=== PATIENT | male | born 1965 | race African-American/Black ===

== ENCOUNTER 2017-10-09 17:56 | Emergency (ER) | payer SELFPAY ==
[~2017-10-09] VITALS: Ht 175.3 cm; Wt 73.0 kg
[2017-10-10] MEDS ORDERED: KETOROLAC 60MG/2ML VIAL IM ONE (06:45)
[2017-10-10] MEDS ORDERED: HYDROCODONE/ACETAMINOPHEN 5/325MG TABLET PO ONE (08:45)
[2017-10-10 09:13] VITALS: BP 107/56
== END 2017-10-10 09:36 | disposition home or self-care (01) ==
LOC: ER 21:41
DX: M25.522 Pain in left elbow (principal); M79.632 Pain in left forearm; R51 Headache; R07.81 Pleurodynia; F17.200 Nicotine dependence, unspecified, uncomplicated; F12.10 Cannabis abuse, uncomplicated; F14.10 Cocaine abuse, uncomplicated; F16.10 Hallucinogen abuse, uncomplicated
CPT/HCPCS: 70450; 71111; 72125; 73080; 73090; 96372; 99285; J1885; Z7610

== ENCOUNTER 2021-08-05 18:38 | Emergency (ER) | payer MEDICAID ==
[~2021-08-05] VITALS: Ht 175.3 cm; Wt 73.0 kg
[2021-08-05] MEDS ORDERED: HYDROCODONE/ACETAMINOPHEN 5/325MG TABLET PO ONE (22:30)
[2021-08-06 00:49] VITALS: BP 145/77
== END 2021-08-06 01:24 | disposition home or self-care (01) ==
LOC: ER 18:38
DX: R51.9 Headache, unspecified (principal); M79.645 Pain in left finger(s); M25.552 Pain in left hip; W18.39XA Other fall on same level, initial encounter; Y93.89 Activity, other specified; Y92.89 Other specified places as the place of occurrence of the external cause; Y99.8 Other external cause status; F14.10 Cocaine abuse, uncomplicated; F12.10 Cannabis abuse, uncomplicated
CPT/HCPCS: 29130; 73130; 73502; 99284

== ENCOUNTER 2022-12-23 03:44 | Emergency (ER) | payer MEDICAID ==
[~2022-12-23] VITALS: Ht 175.3 cm; Wt 66.0 kg
[2022-12-23 03:59] VITALS: O2SAT 99
[2022-12-23] MEDS ORDERED: SODIUM CHLORIDE 0.9% 1,000 ML IV ONE (04:15)
[2022-12-23 05:01] LABS: BASOPHILS % 0.4 % (0.0-2.0); EOSINOPHILS % 2.1 % (0.0-5.0); HEMATOCRIT. 35.6 % (42.0-52.0); HEMOGLOBIN. 12.2 g/dL (14.0-18.0); MEAN CORPUSCULAR HEMOGLOBIN 30.9 pg (28.0-32.0); MEAN CORPUSCULAR HGB CONC 34.4 g/dL (31.0-37.0); MEAN CORPUSCULAR VOLUME 89.8 fL (80.0-94.0); MEAN PLATELET VOLUME 8.8 fl (7.4-10.4); MONOCYTES % 7.1 % (2.0-8.0); NEUTROPHILS % 76.4 % (40.0-76.0); PLATELET 265 x1000/uL (130-400); RED BLOOD CELL COUNT 3.96 mill/uL (4.7-6.1); RED CELL DISTRIBUTION WIDTH 12.9 % (11.6-14.6)
[2022-12-23 05:08] LABS: CHLORIDE 109 mEq/L (98-107); INDEX HEMOLYSI 1 (1-3); INDEX ICTERIC 1 (1-4); INDEX LIPEMIC 1 (1-3); POTASSIUM 3.2 mEq/L (3.5-5.1); SODIUM 141 mEq/L (136-145)
[2022-12-23 05:18] LABS: ALANINE AMINOTRANSFERASE 28 IU/L (13-61); ALBUMIN 3.3 g/dL (3.4-5.0); ASPARTATE AMINOTRANSFERASE 17 IU/L (15-37); BILIRUBIN TOTAL 0.3 mg/dL (0.1-1.0); CALCIUM 7.9 mg/dL (8.5-10.1); CARBON DIOXIDE 25 mEq/L (21-32); CREATINE KINASE 270 IU/L (39-308); CREATININE 0.8 mg/dL (0.6-1.3); GLUCOSE 100 mg/dL (70-105); PROTEIN TOTAL 6.6 g/dL (6.0-8.3); UREA NITROGEN BLOOD 14 mg/dL (7-21)
[2022-12-23 05:34] LABS: CLARITY URINE CLEAR (CLEAR); COLOR URINE YELLOW (YELLOW); GLUCOSE URINE NEGATIVE (NEGATIVE); KETONES URINE NEGATIVE (NEGATIVE); LEUKOCYTE ESTERASE URINE NEGATIVE (NEGATIVE); NITRITE URINE NEGATIVE (NEGATIVE); OCCULT BLOOD URINE NEGATIVE (NEGATIVE); PH URINE 5.5 (4.5-8.0); PROTEIN URINE NEGATIVE (NEGATIVE); SPECIFIC GRAVITY URINE 1.007 (1.005-1.030); UROBILINOGEN URINE 0.2 E.U./dL (0.2-1.0)
[2022-12-23 05:53] LABS: BASOPHILS % 0.4 % (0.0-2.0); EOSINOPHILS % 1.7 % (0.0-5.0); HEMATOCRIT. 35.3 % (42.0-52.0); HEMOGLOBIN. 11.8 g/dL (14.0-18.0); LYMPHOCYTES % 12.9 % (20.0-50.0); MEAN CORPUSCULAR HEMOGLOBIN 29.9 pg (28.0-32.0); MEAN CORPUSCULAR HGB CONC 33.5 g/dL (31.0-37.0); MEAN CORPUSCULAR VOLUME 89.4 fL (80.0-94.0); MEAN PLATELET VOLUME 8.4 fl (7.4-10.4); MONOCYTES % 6.7 % (2.0-8.0); NEUTROPHILS % 78.3 % (40.0-76.0); PLATELET 248 x1000/uL (130-400); RED BLOOD CELL COUNT 3.95 mill/uL (4.7-6.1); RED CELL DISTRIBUTION WIDTH 13.3 % (11.6-14.6); WHITE BLOOD COUNT 12.8 x1000/uL (4.5-11.0)
[2022-12-23 05:58] LABS: PARTIAL THROMBOPLASTIN TIME 28.1 sec (23.4-31.0); PROTHROMBIN TIME 11.2 sec (9.6-11.0)
[2022-12-23] MEDS ORDERED: ACETAMINOPHEN 325MG TABLET PO ONE (06:30)
[2022-12-23] MEDS ORDERED: POTASSIUM CHLORIDE 20MEQ TABLET SR PO ONE (08:00)
[2022-12-23] MEDS ORDERED: NAPR-1164 MT (08:54)
[2022-12-23 09:29] VITALS: BP 154/91; PULSE 78; RESP 16; TEMP 98.8
== END 2022-12-23 09:45 | disposition home or self-care (01) ==
LOC: ER 05:03
DX: M79.602 Pain in left arm (principal); R51.9 Headache, unspecified; V29.99XA Rider (driver) (passenger) of other motorcycle injured in unspecified traffic accident, initial encounter; Y93.89 Activity, other specified; Y92.89 Other specified places as the place of occurrence of the external cause; Y99.8 Other external cause status
CPT/HCPCS: 80053; 81003; 82550; 83690; 85025; 85610; 85730; 86850; 86900; 86901; 36415; 71045; 72170; 73562; 70450; 96360; 99285; J7030; Z7610 ×2

== ENCOUNTER 2023-04-18 00:53 | Emergency (ER) | payer SELFPAY ==
[~2023-04-18] VITALS: Ht 172.7 cm; Wt 73.0 kg
[~2023-04-18 00:53] MED LIST: NAPR-1164 MT
[2023-04-18 01:16] VITALS: O2SAT 98
[2023-04-18] MEDS ORDERED: IBUP-2028 MT (05:34)
[2023-04-18] MEDS ORDERED: IBUPROFEN 400MG TABLET PO ONE (05:45)
[2023-04-18 05:54] VITALS: BP 121/69; PULSE 98; RESP 18; TEMP 98.7
== END 2023-04-18 06:10 | disposition home or self-care (01) ==
LOC: ER 00:53
DX: R56.9 Unspecified convulsions (principal); Y08.89XA Assault by other specified means, initial encounter; Y93.89 Activity, other specified; Y92.89 Other specified places as the place of occurrence of the external cause; Y99.8 Other external cause status
CPT/HCPCS: 99282

== ENCOUNTER 2023-07-09 01:55 | Emergency (ER) | payer SELFPAY ==
[~2023-07-09] VITALS: Ht 172.7 cm; Wt 73.0 kg
[~2023-07-09 01:55] MED LIST changes: +IBUP-2028 MT
[2023-07-09 02:21] VITALS: BP 112/78; PULSE 98; RESP 15; TEMP 98.2; O2SAT 98
== END 2023-07-09 05:29 | disposition home or self-care (01) ==
LOC: ER 01:55
DX: S09.90XA Unspecified injury of head, initial encounter (principal); F14.10 Cocaine abuse, uncomplicated; F12.10 Cannabis abuse, uncomplicated; Y08.89XA Assault by other specified means, initial encounter; Y93.89 Activity, other specified; Y92.89 Other specified places as the place of occurrence of the external cause; Y99.8 Other external cause status
CPT/HCPCS: 99281

== ENCOUNTER 2023-08-13 07:02 | Inpatient (IN) | payer SELFPAY ==
[~2023-08-13] VITALS: Ht 175.3 cm; Wt 74.4 kg
[~2023-08-13 07:02] MED LIST changes: +IBUP-2029 MT
[2023-08-13 07:40] LABS: BASOPHILS % 0.6 % (0.0-2.0); EOSINOPHILS % 1.4 % (0.0-5.0); HEMATOCRIT. 40.6 % (42.0-52.0); MEAN CORPUSCULAR HEMOGLOBIN 30.6 pg (28.0-32.0); MEAN CORPUSCULAR HGB CONC 34.4 g/dL (31.0-37.0); MEAN CORPUSCULAR VOLUME 89.2 fL (80.0-94.0); MEAN PLATELET VOLUME 8.8 fl (7.4-10.4); MONOCYTES % 6.4 % (2.0-8.0); NEUTROPHILS % 73.6 % (40.0-76.0); PLATELET 266 x1000/uL (130-400); RED BLOOD CELL COUNT 4.56 mill/uL (4.7-6.1); RED CELL DISTRIBUTION WIDTH 14.1 % (11.6-14.6); WHITE BLOOD COUNT 12.9 x1000/uL (4.5-11.0)
[2023-08-13 07:47] LABS: CHLORIDE 107 mEq/L (98-107); POTASSIUM 3.4 mEq/L (3.5-5.1); SODIUM 139 mEq/L (136-145)
[2023-08-13 07:48] LABS: CALCIUM 8.9 mg/dL (8.7-10.4); CARBON DIOXIDE 24 mEq/L (21-32)
[2023-08-13 07:53] LABS: CREATININE 1.2 mg/dL (0.6-1.3); GLUCOSE 175 mg/dL (70-105); UREA NITROGEN BLOOD 16 mg/dL (9-23)
[2023-08-13 08:09] LABS: ETHANOL BLOOD < 10 mg/dL (<10)
[2023-08-13] MEDS: ACETAMINOPHEN 325MG TABLET PO ONE (09:01)
[2023-08-13] MEDS: OXYCODONE HCL/ACETAMINOPHEN 5/325MG TABLET PO ONE (10:00)
[2023-08-13] MEDS: LIDOCAINE HCL/EPINEPHRINE 1%-EPI 1:100,000 20 ML VIAL INFIL ONE (12:13)
[2023-08-13] MEDS ORDERED: IPRATROPIUM/ALBUTEROL 0.5-3(2.5)MG/3ML NEB HHN PRN (13:45)
[2023-08-13] MEDS ORDERED: MAGNESIUM/ALUMINUM HYDROXIDE/SIMETHICONE 30ML UDC PO PRN (13:45)
[2023-08-13] MEDS ORDERED: ACETAMINOPHEN 325MG TABLET PO PRN (13:45)
[2023-08-13] MEDS ORDERED: ONDANSETRON HCL 4MG/2ML INJ IV PRN (13:45)
[2023-08-13] MEDS ORDERED: CLONIDINE 0.1MG TABLET PO PRN (13:45)
[2023-08-13] MEDS: ENOXAPARIN 40MG/0.4ML SYR SUBCUT SCH (17:06)
[2023-08-13 18:28] LABS: CREATINE KINASE 1371 IU/L (46-171)
[2023-08-13 19:46] VITALS: BP 148/85; PULSE 103; RESP 20; TEMP 98.8
[2023-08-13 20:00] VITALS: BP 151/83; PULSE 105; RESP 19; TEMP 97.5
[2023-08-13] MEDS: FAMOTIDINE 20MG TABLET PO SCH (22:09)
[2023-08-13] MEDS: ACETAMINOPHEN 325MG TABLET PO PRN (22:10)
[2023-08-14] VITALS: BP 133/88; PULSE 98; RESP 18; TEMP 97.5
[2023-08-14 04:00] VITALS: BP 153/91; PULSE 97; RESP 19; TEMP 97.7
[2023-08-14] MEDS: KETOROLAC 15MG/ML VIAL IV PRN (06:47)
[2023-08-14 08:00] VITALS: BP 136/90; PULSE 106; RESP 20; TEMP 97.4
[2023-08-14 12:00] VITALS: BP 145/79; PULSE 92; RESP 20; TEMP 97.9
[2023-08-14] MEDS: SODIUM CHLORIDE 0.9% 1,000 ML IV SCH (14:28)
[2023-08-14 16:00] VITALS: BP 128/75; PULSE 95; RESP 20; TEMP 98
[2023-08-14 16:16] LABS: BASOPHILS % 0.4 % (0.0-2.0); EOSINOPHILS % 2.8 % (0.0-5.0); HEMATOCRIT. 34.7 % (42.0-52.0); HEMOGLOBIN. 11.8 g/dL (14.0-18.0); LYMPHOCYTES % 17.4 % (20.0-50.0); MEAN CORPUSCULAR HEMOGLOBIN 30.9 pg (28.0-32.0); MEAN CORPUSCULAR VOLUME 90.8 fL (80.0-94.0); MEAN PLATELET VOLUME 8.5 fl (7.4-10.4); MONOCYTES % 6.9 % (2.0-8.0); NEUTROPHILS % 72.5 % (40.0-76.0); PLATELET 233 x1000/uL (130-400); RED BLOOD CELL COUNT 3.82 mill/uL (4.7-6.1); RED CELL DISTRIBUTION WIDTH 13.5 % (11.6-14.6); WHITE BLOOD COUNT 8.3 x1000/uL (4.5-11.0)
[2023-08-14 16:22] LABS: CARBON DIOXIDE 29 mEq/L (21-32); CHLORIDE 105 mEq/L (98-107); POTASSIUM 4.3 mEq/L (3.5-5.1); SODIUM 138 mEq/L (136-145)
[2023-08-14 16:23] LABS: CALCIUM 8.7 mg/dL (8.7-10.4)
[2023-08-14 16:28] LABS: GLUCOSE 126 mg/dL (70-105); LDL CHOLESTEROL 69 mg/dL (5-100); TRIGLYCERIDE 175 mg/dL (0-150); UREA NITROGEN BLOOD 11 mg/dL (9-23)
[2023-08-14 16:30] LABS: CHOLESTEROL 136 mg/dL (<200); HDL CHOLESTEROL 47 mg/dL (>55)
[2023-08-14 16:31] LABS: THYROID STIMULATING HORMONE 1.09 uIU/mL (0.55-4.78)
[2023-08-14 16:32] LABS: T4 FREE 1.01 ng/dL (0.89-1.76)
[2023-08-14 20:00] VITALS: BP 121/78; PULSE 105; RESP 19; TEMP 98.6
[2023-08-15] VITALS: BP 125/79; PULSE 91; RESP 19; TEMP 99.5
[2023-08-15 04:00] VITALS: BP 126/88; PULSE 103; RESP 19; TEMP 98.8
[2023-08-15 08:00] VITALS: BP 147/88; PULSE 90; RESP 20; TEMP 98.6
[2023-08-15 12:00] VITALS: BP 118/70; PULSE 85; RESP 19; TEMP 97.7
[2023-08-15 16:00] VITALS: BP 116/68; PULSE 97; RESP 20; TEMP 98.1
[2023-08-15 20:00] VITALS: BP 140/8; PULSE 98; RESP 19; TEMP 98.1
[2023-08-16] VITALS: BP 138/82; PULSE 92; RESP 19; TEMP 97.8
[2023-08-16 04:00] VITALS: BP 136/86; PULSE 91; RESP 19; TEMP 98.2
[2023-08-16 06:31] LABS: CARBON DIOXIDE 28 mEq/L (21-32); CHLORIDE 108 mEq/L (98-107); POTASSIUM 3.9 mEq/L (3.5-5.1); SODIUM 141 mEq/L (136-145)
[2023-08-16 06:32] LABS: CALCIUM 8.8 mg/dL (8.7-10.4)
[2023-08-16 06:36] LABS: CREATININE 0.8 mg/dL (0.6-1.3)
[2023-08-16 06:37] LABS: GLUCOSE 116 mg/dL (70-105); UREA NITROGEN BLOOD 9 mg/dL (9-23)
[2023-08-16 06:49] LABS: BASOPHILS % 0.7 % (0.0-2.0); EOSINOPHILS % 3.8 % (0.0-5.0); HEMATOCRIT. 34.3 % (42.0-52.0); HEMOGLOBIN. 11.8 g/dL (14.0-18.0); LYMPHOCYTES % 21.5 % (20.0-50.0); MEAN CORPUSCULAR HEMOGLOBIN 30.9 pg (28.0-32.0); MEAN CORPUSCULAR HGB CONC 34.3 g/dL (31.0-37.0); MONOCYTES % 6.8 % (2.0-8.0); NEUTROPHILS % 67.2 % (40.0-76.0); PLATELET 231 x1000/uL (130-400); RED BLOOD CELL COUNT 3.81 mill/uL (4.7-6.1); RED CELL DISTRIBUTION WIDTH 13.5 % (11.6-14.6); WHITE BLOOD COUNT 8.3 x1000/uL (4.5-11.0)
[2023-08-16 08:00] VITALS: BP 121/70; PULSE 82; RESP 18; TEMP 98.9
[2023-08-16 12:00] VITALS: BP 141/86; PULSE 98; RESP 19; TEMP 98.1
[2023-08-16] MEDS ORDERED: TOPUD PO (12:29)
[2023-08-16] MEDS ORDERED: TRAM-529 PO (12:29)
[2023-08-16 13:28] VITALS: BP 144/86; PULSE 98; TEMP 98.1; O2SAT 97
== END 2023-08-16 13:40 | disposition home or self-care (01) | DRG 342 ==
LOC: ER 07:02 → 5WST 11:53 → EDBEDREQ 12:00 → EDBEDREQTM 12:00 → 6EST 13:56
PROVIDERS: ADMIT Internal Medicine; ATTEND Internal Medicine
DX: S52.692A Other fracture of lower end of left ulna, initial encounter for closed fracture (principal); E87.6 Hypokalemia; S01.01XA Laceration without foreign body of scalp, initial encounter; S52.92XA Unspecified fracture of left forearm, initial encounter for closed fracture; F17.210 Nicotine dependence, cigarettes, uncomplicated; S82.402A Unspecified fracture of shaft of left fibula, initial encounter for closed fracture; S82.392A Other fracture of lower end of left tibia, initial encounter for closed fracture; R73.9 Hyperglycemia, unspecified; Z59.00 Homelessness unspecified; X58.XXXA Exposure to other specified factors, initial encounter; Y93.89 Activity, other specified; Y92.89 Other specified places as the place of occurrence of the external cause; Y99.8 Other external cause status
CPT/HCPCS: 36415; 73100; 73551; 73590; 73610; 80048; 80061; 80320; 82550; 83036; 84439; 84443; 85025; 97162; 99285; J1650; J1885; J3490; J7030; G0480